=== PATIENT | female | born 1980 | race Caucasian/White ===

== ENCOUNTER 2016-05-07 13:04 | Emergency (ER) | payer BC, OTHER ==
[2016-05-07 13:24] VITALS: BP 109/85
--- NOTE | 2016-05-07 13:41 | UC ---
Throat Pain/Nasal Uriel HPI - HPI Summary HPI Summary: SORE THROAT X 2 DAYS + COUGH, NASAL CONGESTION, NO FEVER, NO CHILLS - History of Current Complaint Chief Complaint: UCGeneralIllness Stated Complaint: THROAT Time Seen by Provider: 05/07/16 13:34 Hx Obtained From: Patient Hx Last Menstrual Period: 04/11/16 ?: No Onset/Duration: Gradual Onset, Lasting Days - 2, Still Present Severity: Moderate Cough: Nonproductive Associated Signs & Symptoms: Positive: Nasal Discharge. Negative: Hoarseness, Sinus Discomfort, Fever, Rash - Allergies/Home Medications Allergies/Adverse Reactions: Allergies Allergy/AdvReac Type Severity Reaction Status Date / Time No Known Allergies Allergy Verified 05/07/16 13:24 PMH/Surg Hx/FS Hx/Imm Hx Endocrine History Of: Denies: Diabetes Cardiovascular History Of: Denies: Cardiac Disorders Respiratory History Of: Reports: Asthma - Surgical History Surgical History: None - Family History Known Family History: Negative: Diabetes - Social History Alcohol Use: Occasionally Substance Use Type: None Smoking Status (MU): Never Smoked Tobacco - Immunization History Most Recent Influenza Vaccination: none Review of Systems Constitutional: Negative Skin: Negative Eyes: Negative ENT: Sore Throat, Nasal Discharge Respiratory: Cough All Other Systems Reviewed And Are Negative: Yes Physical Exam Triage Information Reviewed: Yes Appearance: Well-Appearing, No Pain Distress, Well-Nourished Vital Signs: Initial Vital Signs Temp 98.6 F 05/07/16 13:20 Pulse 76 05/07/16 13:20 Resp 16 05/07/16 13:20 BP 109/85 05/07/16 13:20 Pulse Ox 100 05/07/16 13:20 Vital Signs Reviewed: Yes Eyes: Positive: Conjunctiva Clear ENT: Positive: Normal ENT inspection, Hearing grossly normal, Pharyngeal erythema, Nasal congestion, Nasal drainage, TMs normal. Negative: TM bulging, TM dull, TM red Neck: Positive: Supple, Nontender, No Lymphadenopathy Respiratory: Positive: Chest non-tender, Lungs clear, Normal breath sounds, No respiratory distress Cardiovascular: Positive: RRR, No Murmur, Pulses Normal Skin Exam: Normal Throat Pain/Nasal Course/Dx - Differential Dx/Diagnosis Provider Diagnoses: URI Discharge - Discharge Plan Condition: Stable Disposition: HOME Prescriptions: Albuterol HFA INHALER* [Ventolin HFA Inhaler*] 1 puff INH Q6H PRN #1 mdi PRN Reason: Wheezing Patient Education Materials: Upper Respiratory Infection (ED) Referrals: NANABELLE Ramires [Primary Care Provider] - If Needed
== END 2016-05-07 14:12 | disposition home or self-care (01) ==
LOC: UCCORT 13:04
DX: J06.9 Acute upper respiratory infection, unspecified (principal)
CPT/HCPCS: 87651; 99212; G0463

== ENCOUNTER 2017-07-20 16:29 | Emergency (ER) | payer OTHER ==
[2017-07-20 17:32] VITALS: BP 112/75
[2017-07-20] MEDS ORDERED: Amoxicillin/Clavulanate TAB* 875 MG PO ONE (17:44)
--- NOTE | 2017-07-20 17:46 | UC ---
UC General HPI - HPI Summary HPI Summary: pt is c/o sinus pain, pressure, congestion and colored drainage for over a week. she now has ear presure and a frontal headache as well. she is taking otc medication with no relied. - History of Current Complaint Chief Complaint: UCRespiratory Stated Complaint: SINUSES Time Seen by Provider: 07/20/17 17:40 Hx Obtained From: Patient Hx Last Menstrual Period: 07/04/17 Onset/Duration: Gradual Onset Timing: Constant Pain Intensity: 5 Aggravating: nothing Alleviating: nothing Associated Signs & Symptoms: Positive: Headache. Negative: Fever Similar Episode/Dx as: sinus infection - Allergy/Home Medications Allergies/Adverse Reactions: Allergies Allergy/AdvReac Type Severity Reaction Status Date / Time No Known Allergies Allergy Verified 05/07/16 13:24 Home Medications: Home Medications Dm/PE/Acetaminophen/Chlorphenr [Gnp Cold Head Congestion] 2 tab PO ONCE [History Confirmed 07/20/17] Phenylephrine HCl [Nasal Calvert] 30 ml NS DAILY 07/20/17 [History Confirmed 07/20] predniSONE TAB* [Deltasone TAB*] 20 mg PO DAILY PRN 07/20/17 [History Confirmed 07/20/17] PMH/Surg Hx/FS Hx/Imm Hx Previously Healthy: Yes - Surgical History Surgical History: None - Family History Known Family History: Negative: Diabetes - Social History Occupation: Employed Full-time Lives: With Family Alcohol Use: Occasionally Substance Use Type: None Smoking Status (MU): Never Smoked Tobacco - Immunization History Most Recent Influenza Vaccination: none Vaccination Up to Date: Yes Review of Systems Constitutional: Negative Skin: Negative Eyes: Negative ENT: Ear Ache, Nasal Discharge, Sinus Congestion, Sinus Pain/Tenderness Respiratory: Negative Cardiovascular: Negative Gastrointestinal: Negative Genitourinary: Negative Motor: Negative Neurovascular: Negative Musculoskeletal: Negative Neurological: Headache Psychological: Negative Is Patient Immunocompromised?: No All Other Systems Reviewed And Are Negative: Yes Physical Exam Triage Information Reviewed: Yes Appearance: Well-Appearing Vital Signs: Initial Vital Signs Temp 98.7 F 07/20/17 17:24 Pulse 71 07/20/17 17:24 Resp 16 07/20/17 17:24 BP 112/75 07/20/17 17:24 Pulse Ox 98 07/20/17 17:24 Vital Signs Reviewed: Yes Eyes: Positive: Conjunctiva Clear ENT: Positive: Pharynx normal, Nasal congestion, TMs normal, Sinus tenderness. Negative: Nasal drainage Neck: Positive: Supple, Nontender, No Lymphadenopathy Respiratory: Positive: Lungs clear, Normal breath sounds Cardiovascular: Positive: RRR, No Murmur Abdomen Description: Positive: Nontender, No Organomegaly, Soft Bowel Sounds: Positive: Present Musculoskeletal: Positive: ROM Intact Neurological: Positive: Alert Psychological: Positive: Age Appropriate Behavior Skin Exam: Normal Course/Dx - Course Course Of Treatment: c/w sinusuitis. will tx augmentin, pt advised to consider flonase as well and to stop the nasal decongestant spray after 3 days of use. - Differential Dx - Multi-Symptom Provider Diagnoses: sinusitis Discharge - Sign-Out/Discharge Documenting (check all that apply): Discharge - Discharge Plan Condition: Stable Disposition: HOME Prescriptions: Amoxicillin/Clavulanate TAB* [Augmentin TAB 875*] 875 mg PO BID #20 tab Patient Education Materials: Sinusitis (ED) Referrals: Thu Loo PA [Primary Care Provider] - 7 Days - Billing Disposition and Condition Condition: STABLE Disposition: HOME
== END 2017-07-20 17:58 | disposition home or self-care (01) ==
LOC: UCCORT 16:29
DX: J32.9 Chronic sinusitis, unspecified (principal)
CPT/HCPCS: 99212; A9270-GY; G0463